=== PATIENT | female | born 1965 | race Caucasian/White ===

== ENCOUNTER 2016-10-02 22:00 | Emergency (ER) | payer BC, MEDICAID ==
[~2016-10-02] VITALS: Ht 154.9 cm; Wt 54.5 kg
[~2016-10-02 22:00] MED LIST: ASPI81TA3 PO; ATOR10TA65 PO; ONDA4TAB14 PO
[2016-10-02 22:22] VITALS: Ht 154.9 cm; Wt 54.5 kg
[2016-10-03] MEDS ORDERED: ONDANSETRON 4 MG INJ IV STA (00:55)
[2016-10-03] MEDS ORDERED: HYDROmorphONE 1 MG/ML SYG IV STA (00:55)
[2016-10-03] MEDS ORDERED: SOD CHLORIDE 0.9% 1,000 ML IV ONE (01:00)
[2016-10-03] MEDS ORDERED: LORAZEPAM 2 MG INJ IV ONE (01:00)
--- NOTE | 2016-10-03 01:21 | ERD ---
ER Documentation Chief Complaint Date/Time DATE: 10/03/16 TIME: 01:18 Chief Complaint C/O INCREASE RIGHT LEG PAIN, ON ROUTINE MORPHINE INEFFECTIVE. DENIES TRAUMA HPI 50-year-old female presents in emergency department for complaints of right lower abdominal, right hip pain started today. Patient has history of lung cancer, is currently a chemotherapy. Patient his caused the pain as sharp pain, 6/10 scale, mildly better after taking morphine. Patient denies any injury on affected area. Patient denies any fever or chills. Patient is able to see marketing data specialist tomorrow morning. Patient denies any flank pain. Patient denies any nausea vomiting. Patient denies hematuria or dysuria. ROS All systems reviewed and are negative except as per history of present illness. Medications Home Meds Active Scripts Diphenhydramine Hcl* (Benadryl*) 50 Mg Cap, 50 MG PO Q6H Y for ITCHING/RASH, # 30 CAP Prov:MORGAN HERNANDEZ NP 10/03/16 Oxycodone HCl/Acetaminophen (Percocet 10-325 mg Tablet) 1 Each Tablet, 1 EACH PO Q6 for SEVERE PAIN LEVEL 7-10, #15 TAB Prov:MORGAN HERNANDEZ NP 10/03/16 Atorvastatin Calcium (Atorvastatin Calcium) 10 Mg Tablet, 5 MG PO QHS, #30 TAB Prov:KAI HILL MD 04/20/16 Aspirin (Aspirin) 81 Mg Chew, 81 MG PO DAILY, #30 TAB 2 Refills Prov:KAI HILL MD 04/20/16 Ondansetron (Ondansetron Odt) 4 Mg Tab.rapdis, 4 MG PO Q6H Y for NAUSEA AND/OR VOMITING, #30 TAB Prov:LITO VILLARREAL MD 04/13/16 Allergies Allergies: Coded Allergies: No Known Allergy (Unverified , 04/13/16) PMhx/Soc History of Surgery: Yes (see notes; LUNG BIOPSY X 2.) Anesthesia Reaction: No Hx Neurological Disorder: No Hx Respiratory Disorders: No Hx Cardiac Disorders: No Hx Psychiatric Problems: No Hx Miscellaneous Medical Probl: Yes (see notes; LUNG CA; ON CHEMO) Hx Alcohol Use: No Hx Substance Use: No Hx Tobacco Use: No Smoking Status: Never smoker FmHx Family History: No coronary disease, No diabetes, No other Physical Exam Vitals Vital Signs Date Time Temp Pulse Resp B/P Pulse Ox O2 Delivery O2 Flow Rate FiO2 10/03/16 04:23 103 16 131/83 95 Room Air 10/02/16 22:22 98.0 132 20 140/79 100 Physical Exam GENERAL: The patient is well developed and appropriate for usual state of health, in no apparent distress. CHEST: Clear to auscultation bilaterally. There are no rales, wheezes or rhonchi. HEART: Regular rate and rhythm. No murmurs, clicks, rubs or gallops. No S3 or S4. ABDOMEN: Soft, nontender and nondistended. Good bowel sounds. No rebound or guarding. No gross peritonitis. No gross organomegaly or masses. No Lyons sign or McBurney point tenderness. BACK: No midline or flank tenderness. EXTREMITIES: Able to do full range of motion of the right hip without any restriction. Full range of motion about the joints of the body. Grossly neurovascularly intact. NEURO: Alert and oriented. Cranial nerves 2-12 intact. Motor strength in all 4 extremities with 5/5 strength. Sensation grossly intact. Normal speech and gait. SKIN: There is no apparent rash or petechia. The skin is warm and dry. HEMATOLOGIC AND LYMPHATIC: There is no evidence of excessive bruising or lymphedema. No gross cervical, axillary, or inguinal lymphadenopathy. Result Diagram: 10/03/16 0122 10/03/16 0122 Results 24 hrs Laboratory Tests Test 10/03/16 01:22 10/03/16 02:23 Alanine Aminotransferase (ALT/SGPT) 40IU/L Albumin 3.9g/dl Albumin/Globulin Ratio 0.82 Alkaline Phosphatase 79IU/L Anion Gap 18 Aspartate Amino Transf (AST/SGOT) 56IU/L Basophils # 0.010^3/ul Basophils % 0.2% Blood Urea Nitrogen 6mg/dl Calcium Level 9.6mg/dl Carbon Dioxide Level 26mmol/L Chloride Level 101mmol/L Creatinine 0.81mg/dl Direct Bilirubin 0.00mg/dl Eosinophils # 0.110^3/ul Eosinophils % 0.9% Globulin 4.70g/dl Glucose Level 87mg/dl Hematocrit 29.7% Hemoglobin 9.7g/dl Indirect Bilirubin 0.1mg/dl Lipase 144U/L Lymphocytes # 2.110^3/ul Lymphocytes % 25.2% Mean Corpuscular Hemoglobin 30.0pg Mean Corpuscular Hemoglobin Concent 32.7g/dl Mean Corpuscular Volume 92.0fl Mean Platelet Volume 9.8fl Monocytes # 1.510^3/ul Monocytes % 18.0% Neutrophils # 4.510^3/ul Neutrophils % 55.5% Nucleated Red Blood Cells # 0.010^3/ul Nucleated Red Blood Cells % 0.0/100WBC Platelet Count 82793^3/UL Potassium Level 4.3mmol/L Red Blood Count 3.2310^6/ul Red Cell Distribution Width 19.7% Sodium Level 141mmol/L Total Bilirubin 0.1mg/dl Total Protein 8.6g/dl White Blood Count 8.110^3/ul Urine Bilirubin NEGATIVE Urine Clarity CLEAR Urine Color LT. YELLOW Urine Glucose NEGATIVE% Urine Hemoglobin NEGATIVE Urine Ketones NEGATIVE Urine Leukocyte Esterase NEGATIVE Urine Nitrite NEGATIVE Urine Specific Bicknell <=1.005 Urine Total Protein NEGATIVE Urine Urobilinogen 0.2 E.U./dL Urine pH 6.5 Current Medications Medications (Trade) Dose Ordered Sig/Gigi Route PRN Reason Start Time Stop Time Status Last Admin Dose Admin Hydromorphone HCl (Dilaudid) 1 mg ONCE STAT IV 10/03/16 00:55 10/03/16 00:57 DC 10/03/16 01:19 Ondansetron HCl 4 mg 4 mg ONCE STAT IV 10/03/16 00:55 10/03/16 00:57 DC 10/03/16 01:19 Sodium Chloride (NS) 1,000 ml @ 1,000 mls/hr Q1H ONCE IV 10/03/16 01:00 10/03/16 01:59 DC 10/03/16 01:20 Lorazepam (Ativan) 1 mg ONCE ONCE IV 10/03/16 01:00 10/03/16 01:01 DC 10/03/16 01:19 Diphenhydramine HCl (Benadryl) 50 mg ONCE ONCE PO 10/03/16 04:30 10/03/16 04:31 DC 10/03/16 04:20 Patient was given medication for pain here in emergency department, after treatment, patient verbalized feeling much better. Patient's pain is improved. Ativan was given here in emergency department, verbalizing much better afterwards.Normal saline IV bolus was given here in emergency department for rehydration, patient tolerated IV fluids. PROCEDURE: CT ABDOMEN/PELVIS WITHOUT CONTRAST CLINICAL INDICATION: 50-year-old female with abdominal pain. TECHNIQUE: The study was performed utilizing a GE [employer] VCT 64-slice CT scanner. Direct axial sections were obtained through the abdomen and pelvis without the use of intravenous contrast material. Sagittal and coronal reformations were obtained. Automated exposure control and iterative reconstruction techniques were utilized for this examination. The images were reviewed on a PACS workstation. CTD/vol = 5.2 mGy; Total Exam DLP = 295.2 mGy- cm. COMPARISON: CT abdomen/pelvis June 02, 2016; CT chest June 20, 2016. FINDINGS: There is persistent consolidation within the lateral segment of the right middle lobe, medial/posterior posterior segments of the right lower lobe and medial segment of the left lower lobe with air bronchograms present. Multiple small nodular densities are seen within the lower lobes more prominently on the right side. There is no evidence for significant pleural effusion. The inferior aspect of a central line is seen within the distal superior vena cava and right atrium. There is respiratory artifact throughout the abdominal images limiting the evaluation. The liver has a normal size and contour without focal areas of abnormal density. No intrahepatic nor extrahepatic biliary ductal dilatation is seen. The gallbladder demonstrates no wall thickening nor pericholecystic fluid. No biliary stones are evident. The pancreas is without areas of abnormal attenuation. The spleen is identified and has a normal size without abnormal density. The adrenal glands are unremarkable. The kidneys are without abnormal density. No hydroureteronephrosis nor nephroureterolithiasis is evident. The urinary bladder contains urine. There is fecalization within the small bowel without definite transition point. There is mild retained stool throughout the colon without gross bowel obstruction. The appendix is visualized and is without abnormal thickening or surrounding inflammatory reaction. There is radiopaque material identified within the proximal and distal appendix. The uterus is unremarkable. There is trace pelvic free fluid. Phleboliths are seen within the pelvis. The aortoiliac vessels are without aneurysmal dilatation. The osseous structures are intact. IMPRESSION: 1. Persistent consolidation lateral segment right middle lobe, medial/ posterior segment right lower lobe and medial segment of the left lower lobe with air bronchograms. 2. Multiple small nodules within the lower lobes were prominently on the right side but similar to the patient's prior CT scan. 3. Central line within the distal superior vena cava/right atrium. 4. Extensive respiratory artifact within the abdominal images limiting evaluation. 5. Fecalization within the small bowel and retained stool throughout the colon without gross bowel obstruction. 6. No CT evidence for appendicitis. 7. Trace pelvic free fluid. .Teddy Patel MD, Date Time Electronically viewed and signed by .Teddy Patel MD, MD on 10/03/2016 02:29 .M/ CC: MORGAN HERNANDEZ SERVICE DELIVERY MANAGEMENT CONSULTANT PROCEDURE: RIGHT HIP - 2 VIEWS CLINICAL INDICATION: 50-year-old female with right hip pain. TECHNIQUE: AP and frog lateral views of the right hip were performed. The images reviewed on a PACS workstation. COMPARISON: CT abdomen/pelvis October 03, 2016; CT abdomen/pelvis May. FINDINGS: There is normal mineralization and alignment. No fracture or osseous lesion is identified. There are normal joints without evidence of arthritis or effusion. No radiopaque foreign body is seen. There is a phlebolith within the right pelvic region. IMPRESSION: Unremarkable right hip radiographs. .Teddy Patel MD, MD Date Time Electronically viewed and signed by .Teddy Patel MD, MD on 10/03/2016 02:32 .M/ CC: MORGAN HERNANDEZ SERVICE DELIVERY MANAGEMENT CONSULTANT Procedures/[facility] Medical Decision Making: Patient's pain is most likely consistent with a contusion or a sprain, can't be pain caused by chemotherapy since patient is undergoing chemotherapy at this time. There is no suspicion for neurovascular compromise. Patient has intact sensation and circulation of the affected extremity. There is low suspicion for septic arthritis. Patient does not have any fever. Radiology exams of the affected area does not show any fracture or dislocation. No symptoms of abdominal emergencies, CT scan abdomen and pelvis does not show any abdominal emergencies at this time. Patient does not have any symptoms so acute bacterial infection or any sepsis at this time. Disposition: Home. Patient is given prescription for Percocet for severe pain. Patient was advised to elevate the affected area and apply ice on affected area. Patient was advised that if symptoms are worse, numbness, tingling, high fever, unable to move joint, worsening symptoms, to return to emergency department immediately. Otherwise, patient is advised to follow up with the marketing data specialist as per appointment tomorrow. Departure Diagnosis: Primary Impression: Right hip pain Condition: Stable Patient Instructions: Chronic Pain Additional Instructions: Patient is given prescription for Percocet for severe pain. Patient was advised to elevate the affected area and apply ice on affected area. Patient was advised that if symptoms are worse, numbness, tingling, high fever, unable to move joint, worsening symptoms, to return to emergency department immediately. Otherwise, patient is advised to follow up with the marketing data specialist as per appointment tomorrow. MORGAN HERNANDEZ NP Oct 03, 2016 01:21
[2016-10-03 01:59] LABS: ADD SCAN DIFF NO
[2016-10-03 02:04] LABS: BASOPHILS % 0.2 % (0.0-2.0); EOSINOPHILS # 0.1 10^3/ul (0.0-0.5); EOSINOPHILS % 0.9 % (0.0-7.0); HEMATOCRIT 29.7 % (37.0-47.0); HEMOGLOBIN 9.7 g/dl (12.0-16.0); LYMPHOCYTES # 2.1 10^3/ul (0.8-2.9); LYMPHOCYTES % 25.2 % (15.0-51.0); MEAN CORPUSCULAR HGB CONC 32.7 g/dl (32.0-37.0); MEAN PLATELET VOLUME 9.8 fl (7.4-10.4); MONOCYTE # 1.5 10^3/ul (0.3-0.9); NEUTROPHIL # 4.5 10^3/ul (1.6-7.5); NEUTROPHILS % 55.5 % (39.0-77.0); PLATELET COUNT 618 10^3/UL (140-415); RED BLOOD COUNT 3.23 10^6/ul (4.20-5.40); RED CELL DISTRIBUTION WIDTH 19.7 % (11.5-14.5); WHITE BLOOD COUNT 8.1 10^3/ul (4.8-10.8)
[2016-10-03 02:13] LABS: ALBUMIN 3.9 g/dl (3.3-4.9); POTASSIUM 4.3 mmol/L (3.5-5.1)
[2016-10-03 02:15] LABS: BILIRUBIN,INDIRECT 0.1 mg/dl (0-1.1); BILIRUBIN,TOTAL 0.1 mg/dl (0.2-1.3); CREATININE 0.81 mg/dl (0.44-1.00)
[2016-10-03 02:16] LABS: ALBUMIN/GLOBULIN RATIO 0.82; CALCIUM 9.6 mg/dl (8.4-10.2)
[2016-10-03 02:20] LABS: TOTAL PROTEIN 8.6 g/dl (6.1-8.1)
--- NOTE | 2016-10-03 02:29 | RADRPT ---
PROCEDURE: CT ABDOMEN/PELVIS WITHOUT CONTRAST CLINICAL INDICATION: 50-year-old female with abdominal pain. TECHNIQUE: The study was performed utilizing a GE [employer] VCT 64-slice CT scanner. Direct axia l sections were obtained through the abdomen and pelvis without the use of intravenous contrast mate rial. Sagittal and coronal reformations were obtained. Automated exposure control and iterative cira nstruction techniques were utilized for this examination. [facility] CTD/vol = 5.2 mGy; Total Exam DLP = 295.2 mGy-cm. COMPARISON: CT abdomen/pelvis June 02, 2016; CT chest June 20, 2016. FINDINGS: There is persistent consolidation within the lateral segment of the right middle lobe, medial/foreign agent ior posterior segments of the right lower lobe and medial segment of the left lower lobe with air br onchograms present. Multiple small nodular densities are seen within the lower lobes more prominent ly on the right side. There is no evidence for significant pleural effusion. The inferior aspect of a central line is seen within the distal superior vena cava and right atrium. There is respiratory a rtifact throughout the abdominal images limiting the evaluation. The liver has a normal size and con tour without focal areas of abnormal density. No intrahepatic nor extrahepatic biliary ductal dilata tion is seen. The gallbladder demonstrates no wall thickening nor pericholecystic fluid. No biliary stones are evident. The pancreas is without areas of abnormal attenuation. The spleen is identified and has a normal size without abnormal density. The adrenal glands are unremarkable. The kidneys are without abnormal density. No hydroureteronephrosis nor nephroureterolithiasis is evident. The ur inary bladder contains urine. There is fecalization within the small bowel without definite transiti on point. There is mild retained stool throughout the colon without gross bowel obstruction. The ap pendix is visualized and is without abnormal thickening or surrounding inflammatory reaction. There is radiopaque material identified within the proximal and distal appendix. The uterus is unremarkabl e. There is trace pelvic free fluid. Phleboliths are seen within the pelvis. The aortoiliac vessel s are without aneurysmal dilatation. The osseous structures are intact. IMPRESSION: 1. Persistent consolidation lateral segment right middle lobe, medial/posterior segment right lower lobe and medial segment of the left lower lobe with air bronchograms. 2. Multiple small nodules within the lower lobes were prominently on the right side but similar to the patient's prior CT scan. 3. Central line within the distal superior vena cava/right atrium. 4. Extensive respiratory artifact within the abdominal images limiting evaluation. 5. Fecalization within the small bowel and retained stool throughout the colon without gross bowel obstruction. 6. No CT evidence for appendicitis. 7. Trace pelvic free fluid. .Teddy Patel MD, MD Date Time Electronically viewed and signed by .Teddy Patel MD, on 10/03/2016 02:29 .Antonio/
--- NOTE | 2016-10-03 02:32 | RADRPT ---
PROCEDURE: RIGHT HIP - 2 VIEWS CLINICAL INDICATION: 50-year-old female with right hip pain. TECHNIQUE: AP and frog lateral views of the right hip were performed. The images reviewed on a PAC S workstation. COMPARISON: CT abdomen/pelvis October 03, 2016; CT abdomen/pelvis June 02, 2016. FINDINGS: There is normal mineralization and alignment. No fracture or osseous lesion is identified. There are normal joints without evidence of arthritis or effusion. No radiopaque foreign body is seen. There is a phlebolith within the right pelvic region. IMPRESSION: Unremarkable right hip radiographs. .Teddy Patel MD, MD Date Time Electronically viewed and signed by .Teddy Patel MD, on 10/03/2016 02:32 .M/
[2016-10-03 03:21] LABS: ADD UMIC NO; URINE BILIRUBIN (Dip) NEGATIVE (NEGATIVE); URINE BLOOD (Dip) NEGATIVE (NEGATIVE); URINE COLOR LT. YELLOW (YELLOW); URINE GLUCOSE (Dip) NEGATIVE (NEGATIVE); URINE KETONES (Dip) NEGATIVE (NEGATIVE); URINE LEUKOCYTE ESTERASE (Dip) NEGATIVE (NEGATIVE); URINE NITRITE (Dip) NEGATIVE (NEGATIVE); URINE TOTAL PROTEIN (Dip) NEGATIVE (NEGATIVE); URINE UROBILINOGEN (Dip) 0.2 E.U./dL (0.1-1.0)
[2016-10-03] MEDS ORDERED: OXYC-209 PO (03:40)
[2016-10-03] MEDS ORDERED: BEN50 PO (04:17)
[2016-10-03 04:23] VITALS: BP 131/83; PULSE 103; RESP 16
[2016-10-03] MEDS ORDERED: DIPHENHYDRAMINE 50 MG CAP PO ONE (04:30)
== END 2016-10-03 04:32 | disposition home or self-care (01) ==
LOC: FTE 22:00
DX: M25.551 Pain in right hip (principal); C34.90 Malignant neoplasm of unspecified part of unspecified bronchus or lung; Z79.82 Long term (current) use of aspirin
CPT/HCPCS: 36415; 73510; 74176; 80053; 81003; 83690; 85025; 96374; 96375; J1170; J2060; J2405; J7030; Z7502; Z7610

== ENCOUNTER 2018-03-12 18:21 | Inpatient (IN) | END 2018-03-15 18:59 | disposition home or self-care (01) | DRG 193 ==

== ENCOUNTER 2018-04-04 13:24 | Inpatient (IN) | END 2018-04-17 18:48 | DRG 180 ==